=== PATIENT | female | born 1985 | race Caucasian/White ===

== ENCOUNTER 2023-10-12 19:23 | Emergency (ER) | payer OTHER ==
[~2023-10-12] VITALS: Ht 154.9 cm; Wt 82.8 kg
[2023-10-12 19:42] VITALS: BP 126/86; PULSE 98; RESP 17; TEMP 98; O2SAT 98
[2023-10-12] MEDS: KETOROLAC 30 MG/ML VIAL IM ONE (22:57)
[2023-10-12] MEDS ORDERED: CYCL-711 PO (23:48)
[2023-10-12] MEDS ORDERED: IBUP-2213 PO (23:48)
[2023-10-12] MEDS ORDERED: LID5T TP (23:48)
[2023-10-13 00:11] VITALS: BP 126/86; PULSE 98; RESP 17; TEMP 98; O2SAT 98
== END 2023-10-13 00:09 | disposition home or self-care (01) ==
LOC: MED 19:23
DX: S43.401A Unspecified sprain of right shoulder joint, initial encounter (principal); S53.401A Unspecified sprain of right elbow, initial encounter; Z79.1 Long term (current) use of non-steroidal anti-inflammatories (NSAID); Z79.899 Other long term (current) drug therapy; W18.39XA Other fall on same level, initial encounter; Y93.89 Activity, other specified; Y92.89 Other specified places as the place of occurrence of the external cause; Y99.8 Other external cause status
CPT/HCPCS: 73030; 73090; 73130; 81025; 96372; 99284; J1885; Q0092